=== PATIENT | male | born 1960 | race Caucasian/White ===

== ENCOUNTER 2018-04-29 15:04 | Emergency (ER) | payer MEDICAID ==
[~2018-04-29] VITALS: Ht 167.6 cm; Wt 86.2 kg
[2018-04-29 15:05] VITALS: BP 133/89
[2018-04-29] MEDS ORDERED: HYDROmorphone 1mg/ml Carpuject IM ONE (15:30)
[2018-04-29 15:47] LABS: BASOPHILS % (AUTO) 1.7 % (0.0-2.0); EOSINOPHILS % (AUTO) 3.5 % (0.0-3.0); LYMPHOCYTES % (AUTO) 14.1 % (20.0-45.0); MEAN CORPUSCULAR VOLUME 88 FL (80-99); NEUTROPHILS % (AUTO) 61.7 % (45.0-75.0); PLATELET COUNT 192 K/UL (150-450); RED BLOOD COUNT 3.75 M/UL (4.70-6.10); RED CELL DISTRIBUTION WIDTH 13.1 % (11.6-14.8); WHITE BLOOD COUNT 5.6 K/UL (4.8-10.8)
--- NOTE | 2018-04-29 15:47 | Diagnostic Imaging Report ---
EXAM: XR Chest, 1 View CLINICAL HISTORY: CP TECHNIQUE: Frontal view of the chest. COMPARISON: No relevant prior studies available. FINDINGS: Lungs: No focal consolidation. Right mid lung mild atelectasis/scarring. Pleural space: Unremarkable. No pneumothorax. Heart: Cardiomegaly. Mediastinum: Unremarkable. Bones/joints: Unremarkable. IMPRESSION: No focal consolidation. Right mid lung mild atelectasis/scarring.
[2018-04-29] MEDS ORDERED: DIGOXIN125 MCG ORAL (15:51)
[2018-04-29] MEDS ORDERED: DEBROX15 M1 BOTH EARS (15:51)
[2018-04-29] MEDS ORDERED: OMEPRAZOLE20 M2 ORAL (15:51)
[2018-04-29] MEDS ORDERED: NICODERM CQ1 EAC1 TD (15:51)
[2018-04-29] MEDS ORDERED: METOPROLOL TAR100 M1 ORAL (15:51)
[2018-04-29] MEDS ORDERED: NORCO 5-325 TA1 EACH ORAL (15:51)
[2018-04-29] MEDS ORDERED: METHOCARBAMOL750 M1 PO (15:51)
[2018-04-29] MEDS ORDERED: TYLENOL EXTRA500 MG ORAL (15:51)
[2018-04-29] MEDS ORDERED: TRAZODONE HCL150 MG ORAL (15:51)
[2018-04-29] MEDS ORDERED: ELIQUIS5 MG PO (15:51)
[2018-04-29] MEDS ORDERED: LACTULOSE20 GM/301 ORAL (15:51)
[2018-04-29] MEDS ORDERED: DUONEB 0.5-3(2.53 ML HHN (15:51)
[2018-04-29 16:07] LABS: ANION GAP 6 mmol/L (5-15); BLOOD UREA NITROGEN 15 mg/dL (7-18); CALCIUM 9.2 MG/DL (8.5-10.1); CARBON DIOXIDE 32 MMOL/L (21-32); CHLORIDE 102 MMOL/L (98-107); CREATININE 0.9 MG/DL (0.55-1.30); POTASSIUM 4.1 MMOL/L (3.5-5.1); SODIUM 140 MMOL/L (136-145)
[2018-04-29 16:21] LABS: ALANINE AMINOTRANSFERASE 43 U/L (12-78); ALBUMIN 3.1 G/DL (3.4-5.0); ALBUMIN/GLOBULIN RATIO 0.7 (1.0-2.7); ALKALINE PHOSPHATASE 83 U/L (46-116); ASPARTATE AMINO TRANSFERASE 50 U/L (15-37); BILIRUBIN,TOTAL 0.6 MG/DL (0.2-1.0); CKMB 1.2 NG/ML (0.0-3.6); CREATINE KINASE 46 U/L (26-308)
[2018-04-29] MEDS ORDERED: HYDROmorphone 1mg/ml Carpuject IVP ONE (17:45)
--- NOTE | 2018-04-29 18:02 | Emergency Room Report ---
History of Present Illness General Chief Complaint: Chest Pain Source: Patient, Medical Record Present Illness HPI Patient presents initially with complaint of chest pain Reports later that he is also having back pain Denies any shortness of breath Denies any vomiting Patient reports that he was recently at [facility] has been to several other facility since then He had back surgery initially at [facility] Patient also had complained of shortness of breath previously however denies that at this time Patient has multiple comorbidities including significantly poor ejection fraction CHF Patient was given aspirin in the field Allergies: Coded Allergies: No Known Allergies (Unverified , 04/29/18) Patient History Past Medical History: see triage record Pertinent Family History: none Reviewed Nursing Documentation: PMH: Agreed; PSxH: Agreed Nursing Documentation-PMH Past Medical History: No History, Except For Hx Cardiac Problems: Yes - HF. Afib. HEP C Hx Hypertension: Yes Hx COPD: Yes Hx Gastrointestinal Problems: Yes - GERD Hx Neurological Problems: Yes - Depression Review of Systems All Other Systems: negative except mentioned in HPI Physical Exam Vital Signs Date Time Temp Pulse Resp B/P (MAP) Pulse Ox O2 Delivery O2 Flow Rate FiO2 04/29/18 14:56 98.4 95 133/89 91 Room Air 98.4 04/29/18 15:05 17 Sp02 EP Interpretation: reviewed, normal General Appearance: well appearing, no apparent distress Head: normocephalic, atraumatic Eyes: bilateral eye PERRL, bilateral eye EOMI ENT: hearing grossly normal, normal pharynx Respiratory: crackles - Both lower lobes Cardiovascular #1: irregularly irregular Gastrointestinal: non tender, soft Neurologic: alert, oriented x3 Skin: normal color, no rash Lymphatic: no adenopathy Medical Decision Making Diagnostic Impression: Primary Impression: ACS (acute coronary syndrome) Additional Impression: Atrial fibrillation with RVR ER Course Patient is a fairly complex patient with multiple differential to consideration including but not limited to cardiac cardiopulmonary and vascular emergencies Patient's initial blood work is normal X-ray imaging does not show any acute pathology Patient received pain medicine here Given the comorbidities will require further evaluation Patient also had complained of previous back injuries and surgery And will likely benefit from further evaluation of that as well Patient was requested for admission secondary to insurance purposes patient is requiring to be transferred for continued care, Please note that after multiple discussions with the patient, the patient's brother, and his We attempted to have the family assist and the patient deciding to stay in the hospital they report that he is extremely difficult that if he is not willing to stay there is nothing else we can do Patient understands that leaving at this time can lead to worsening symptoms and possible patient is in full decision-making capacity Signing AGAINST MEDICAL ADVICE Labs Test 04/29/18 15:38 White Blood Count 5.6 K/UL (4.8-10.8) Red Blood Count 3.75 M/UL (4.70-6.10) Hemoglobin 11.0 G/DL (14.2-18.0) Hematocrit 33.0 % (42.0-52.0) Mean Corpuscular Volume 88 FL (80-99) Mean Corpuscular Hemoglobin 29.2 PG (27.0-31.0) Mean Corpuscular Hemoglobin Concent 33.2 G/DL (32.0-36.0) Red Cell Distribution Width 13.1 % (11.6-14.8) Platelet Count 192 K/UL (150-450) Mean Platelet Volume 8.0 FL (6.5-10.1) Neutrophils (%) (Auto) 61.7 % (45.0-75.0) Lymphocytes (%) (Auto) 14.1 % (20.0-45.0) Monocytes (%) (Auto) 19.0 % (1.0-10.0) Eosinophils (%) (Auto) 3.5 % (0.0-3.0) Basophils (%) (Auto) 1.7 % (0.0-2.0) Sodium Level 140 MMOL/L (136-145) Potassium Level 4.1 MMOL/L (3.5-5.1) Chloride Level 102 MMOL/L (98-107) Carbon Dioxide Level 32 MMOL/L (21-32) Anion Gap 6 mmol/L (5-15) Blood Urea Nitrogen 15 mg/dL (7-18) Creatinine 0.9 MG/DL (0.55-1.30) Estimat Glomerular Filtration Rate > 60 mL/min (>60) Glucose Level 113 MG/DL (74-106) Calcium Level 9.2 MG/DL (8.5-10.1) Total Bilirubin 0.6 MG/DL (0.2-1.0) Aspartate Amino Transf (AST/SGOT) 50 U/L (15-37) Alanine Aminotransferase (ALT/SGPT) 43 U/L (12-78) Alkaline Phosphatase 83 U/L (46-116) Total Creatine Kinase 46 U/L (26-308) Creatine Kinase MB 1.2 NG/ML (0.0-3.6) Creatine Kinase MB Relative Index 2.6 Troponin I 0.012 ng/mL (0.000-0.056) Total Protein 7.8 G/DL (6.4-8.2) Albumin 3.1 G/DL (3.4-5.0) Globulin 4.7 g/dL Albumin/Globulin Ratio 0.7 (1.0-2.7) Digoxin Level 0.8 NG/ML (0.5-2.0) EKG Diagnostic Results Rate: tachycardiac Rhythm: other - A. fib ST Segments: other - Nonspecific ST T wave changes Rhythm Strip Diag. Results EP Interpretation: yes Rate: 88 Rhythm: no PVC's, no ectopy, other - afib Chest X-Ray Diagnostic Results Chest X-Ray Diagnostic Results : Chest X-Ray Ordered: Yes # of Views/Limited/Complete: 1 View Indication: Chest Pain EP Interpretation: Yes Interpretation: no pneumothorax, other - Nonspecific atelectasis right lower lobe, borderline cardiomegaly, no obvious pneumothorax Impression: No acute disease Electronically Signed by: Hodan Amado DO Last Vital Signs Date Time Temp Pulse Resp B/P (MAP) Pulse Ox O2 Delivery O2 Flow Rate FiO2 04/29/18 17:44 98.4 04/29/18 15:05 95 17 133/89 91 Room Air Status: improved Disposition: XFER SHT-TRM HOSP Condition: Improved Referrals: [facility],REFERRING (PCP) Hodan Amado DO Apr 29, 2018 18:02
[2018-04-29 19:04] VITALS: BP 128/8
[2018-04-29 19:05] VITALS: BP 133/89
== END 2018-04-29 18:48 | disposition left against medical advice (07) ==
LOC: EDBD 15:04 → EMR 15:35
DX: I24.9 Acute ischemic heart disease, unspecified (principal); I48.91 Unspecified atrial fibrillation; J44.9 Chronic obstructive pulmonary disease, unspecified; I10 Essential (primary) hypertension; K21.9 Gastro-esophageal reflux disease without esophagitis; B19.20 Unspecified viral hepatitis C without hepatic coma; F32.9 Major depressive disorder, single episode, unspecified
CPT/HCPCS: 36415; 71045; 80053; 80162; 82550; 82553; 84484; 85025; 93005; 96372; 96374; 99285; J1170